=== PATIENT | female | born 1965 | race Caucasian/White ===

== ENCOUNTER → 2022-06-24 10:59 | Outpatient (BNVA) | payer OTHER, SELFPAY | PROVIDERS: Visit Provider Nurse Practitioner | DX: M89.8X5 Other specified disorders of bone, thigh (principal) | CPT/HCPCS: 73552 ==

== ENCOUNTER 2024-12-11 05:00 | Outpatient (RCR) | payer OTHER, SELFPAY | END 2025-01-09 23:59 | disposition home or self-care (01) | LOC: GPT 05:00 | PROVIDERS: Visit Provider Family Medicine | DX: M76.01 Gluteal tendinitis, right hip (principal) | CPT/HCPCS: 97110; 97140; 97161 ==

== ENCOUNTER 2025-01-10 05:00 | Outpatient (RCR) | payer OTHER, SELFPAY | END 2025-02-09 23:59 | disposition home or self-care (01) | LOC: GPT 05:00 | PROVIDERS: Visit Provider Family Medicine | DX: M76.01 Gluteal tendinitis, right hip (principal) | CPT/HCPCS: 97110; 97112; 97140; 97530 ==

== ENCOUNTER 2025-02-25 12:30 | Outpatient (CLI) | payer OTHER, SELFPAY ==
--- NOTE | 2025-02-25 12:42 | XRR_ITS ---
PROCEDURE INFORMATION: Exam: XR Right Hip Exam date and time: 02/25/2025 12:58 PM Age: 59 years old Clinical indication: Hip pain; Right hip; Sciatica, RT hip and groin area, for 1 yr, no known trauma; Additional info: Sacroiliac joint pain TECHNIQUE: Imaging protocol: Radiologic exam of the right hip. Views: 1 view hip with pelvis when performed. COMPARISON: CR XR femur RT min 2V* [id number] 06/24/2022 11:10 AM FINDINGS: Bones/joints: Near [id number] articulation. Eburnation. Acetabular cysts. No fracture. No lytic or sclerotic bone lesion. Soft tissues: Unremarkable. XR/XR hip RT 2-3V wo/w pel* [id number] IMPRESSION: Severe degenerative changes.
--- NOTE | 2025-02-25 12:58 | XRR_ITS ---
PROCEDURE INFORMATION: Exam: XR Lumbosacral Spine Exam date and time: 02/25/2025 1:07 PM Age: 59 years old Clinical indication: Pain; Sciatica; Right; Additional info: Sacroiliac joint pain TECHNIQUE: Imaging protocol: Radiologic exam of the lumbosacral spine. Views: 2 or 3 views. COMPARISON: CR XR hip RT 2-3V wo/w pel* [id number] 02/25/2025 12:58 PM FINDINGS: Bones/joints: Normal. No acute fracture. Normal alignment. No abnormal motion with flexion or extension. Soft tissues: Unremarkable. XR/XR lumbar spine f/e only [id number] IMPRESSION: No acute findings.
== END 2025-02-25 12:31 | disposition home or self-care (01) ==
PROVIDERS: PCP Nurse Practitioner; Visit Provider Nurse Practitioner
DX: M16.11 Unilateral primary osteoarthritis, right hip (principal); M53.3 Sacrococcygeal disorders, not elsewhere classified
CPT/HCPCS: 72120; 73502